=== PATIENT | male | born 1950 | race Caucasian/White ===

== ENCOUNTER → 2018-11-25 | Outpatient (CLI) | payer MEDICARE, OTHER ==
--- NOTE | 2018-11-25 11:22 | Diagnostic Imaging Report ---
PROCEDURE: US Hepatic (Liver). TECHNIQUE: Multiple Real-time grayscale images were obtained over the right upper quadrant in various projections. INDICATION: Elevated alkaline phosphatase. FINDINGS: The liver is mildly enlarged at 18.8 cm. No discrete liver mass is seen. The liver does appear to be echogenic, suggestive of hepatic steatosis. The gallbladder is without stones or sludge. No wall thickening or biliary ductal dilatation is seen. The pancreas is obscured by bowel gas. The right kidney is unremarkable. There is no ascites. IMPRESSION: 1. Findings are suggestive of hepatic steatosis. No liver mass is seen. 2. No evidence of cholelithiasis or acute cholecystitis. Dictated by: Dictated on workstation # [id number]
== END ==
LOC: RAD 09:47
PROVIDERS: ATTEND Family Medicine
DX: R74.8 Abnormal levels of other serum enzymes (principal)
CPT/HCPCS: 76705

== ENCOUNTER → 2019-07-31 | Outpatient (CLI) | payer MEDICARE, OTHER ==
[2019-07-31 14:35] LABS: ABSOLUTE RETIC # 47 10e9/L (24-90); BASOPHILS % (AUTO) 1 % (0-10); EOSINOPHILS # (AUTO) 0.4 10^3/uL (0.0-0.3); EOSINOPHILS % (AUTO) 7 % (0-10); HEMATOCRIT 40 % (40-54); LYMPHOCYTES % (AUTO) 20 % (12-44); MEAN CORPUSCULAR HEMOGLOBIN 35 PG (25-34); MEAN CORPUSCULAR HGB CONC 35 G/DL (32-36); MEAN CORPUSCULAR VOLUME 101 FL (80-99); MEAN PLATELET VOLUME 8.3 FL (7.4-10.4); MONOCYTES # (AUTO) 0.9 X 10^3 (0.0-1.0); MONOCYTES % (AUTO) 17 % (0-12); NEUTROPHILS % (AUTO) 57 % (42-75); PLATELET COUNT 185 10^3/uL (130-400); RED CELL DISTRIBUTION WIDTH 12.4 % (10.0-14.5); RETICULOCYTE % 1.19 % (0.50-2.40); WHITE BLOOD COUNT 5.2 10^3/uL (4.3-11.0)
[2019-07-31 15:00] LABS: BAND NEUTROPHILS 0 %; BASOPHILS % (MANUAL) 1 %; EOSINOPHILS % (MANUAL) 6 %; LYMPHOCYTES % (MANUAL) 18 %; MONOCYTES % (MANUAL) 14 %; NEUTROPHILS % (MANUAL) 61 %; RBC MORPH NORMAL
[2019-07-31 15:10] LABS: PROTHROMBIN TIME PATIENT 23.3 SEC (12.2-14.7)
== END ==
LOC: LAB 14:09
PROVIDERS: ATTEND Nurse Practitioner Family
DX: D64.9 Anemia, unspecified (principal); Z79.01 Long term (current) use of anticoagulants; R79.89 Other specified abnormal findings of blood chemistry
CPT/HCPCS: 36415; 85007; 85027; 85045; 85610

== ENCOUNTER → 2019-11-07 | Outpatient (CLI) | payer MEDICARE, OTHER | LOC: RAD 13:40 | PROVIDERS: ATTEND Family Medicine | DX: M25.512 Pain in left shoulder (principal); M79.622 Pain in left upper arm; Z53.9 Procedure and treatment not carried out, unspecified reason ==

== ENCOUNTER → 2020-12-04 | Outpatient (CLI) | payer MEDICARE, OTHER | LOC: LABNPT 05:41 | PROVIDERS: ATTEND Internal Medicine Critical Care Medicine | DX: Z53.9 Procedure and treatment not carried out, unspecified reason (principal) ==

== ENCOUNTER 2023-03-10 20:52 | Emergency (ER) | payer MEDICARE, OTHER ==
[~2023-03-10] VITALS: Ht 167.7 cm; Wt 111.1 kg
[2023-03-10] MEDS ORDERED: LOSA50TA63 (21:07)
[2023-03-10] MEDS ORDERED: OXYC20TA3 (21:07)
[2023-03-10] MEDS ORDERED: BISO-3 (21:07)
[2023-03-10] MEDS ORDERED: WARF-48 (21:07)
[2023-03-10] MEDS ORDERED: fentaNYL INJ 100 MCG/2 ML AMP IM STA (21:26)
--- NOTE | 2023-03-10 21:29 | ED Lower Extremity ---
General Chief Complaint: Lower Extremity Stated Complaint: RIGHT LEG PAIN Nursing Triage Note: right posterior/lateral knee pain x1 day. denies injury. reports unable to ambulate today. Source: patient Exam Limitations: no limitations History of Present Illness Date Seen by Provider: March 10, 2023 Time Seen by Provider: 21:28 Initial Comments Patient is a 73-year-old male who presents ED with right knee pain. Knee pain started 1 day ago. Dull achy pain to the anterior part of the knee. Pain worse with movement. Denies of any specific injury. Reports swelling and warmth of the right knee. Denies of any redness. Similar type pain few years ago that he had in his right ankle. Patient states it was secondary to elevated INR. 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 Denies of any calf pain, posterior thigh pain, fever, chills, trauma, chest pain or shortness of breath. Took oxycodone 6 hours ago without much improvement. Denies history of gout, RA or lupus Allergies and Home Medications Allergies Coded Allergies: No Known Drug Allergies (Unverified , 03/10/23) Patient Home Medication List Home Medication List Reviewed: Yes Bisoprolol Fumarate/Hctz (Bisoprolol-Hctz 10-6.25 mg Tab) 10 Mg-6.25 Mg Tablet, (Reported) Entered as Reported by: GEOFF VALDEZ on 03/10/232106 Last Action: New Order Losartan Potassium (Losartan Potassium) 50 Mg Tablet, (Reported) Entered as Reported by: GEOFF VALDEZ on 03/10/232106 Last Action: New Order Oxycodone HCl (Oxycodone HCl) 20 Mg Tablet, (Reported) Entered as Reported by: GEOFF VALDEZ on 03/10/232106 Last Action: New Order Warfarin Sodium (Warfarin Sodium) 5 Mg Tablet, (Reported) Entered as Reported by: GEOFF VALDEZ on 03/10/232106 Last Action: New Order Review of Systems Constitutional: No chills, No diaphoresis, No malaise, No weakness EENTM: No ear pain, No blurred vision, No double vision Respiratory: No cough, No dyspnea on exertion, No short of breath Cardiovascular: No chest pain Gastrointestinal: No abdominal pain, No diarrhea, No nausea, No vomiting Genitourinary: No decreased output, No discharge Musculoskeletal: No back pain; joint pain, joint swelling, muscle pain Skin: No change in color, No change in hair/nails All Other Systems Reviewed Negative Unless Noted: Yes Past Lvfwjfp-Aeddix-Vomqex Hx Patient Social History Tobacco Use?: Yes Substance use?: No Alcohol Use?: Yes Alcohol Frequency: Daily Pt feels they are or have been: No Immunizations Up To Date First/Initial COVID19 Vaccinat: z1 Past Medical History Surgery/Hospitalization HX: htn, hld, djd, arthritis, hernia repair x3 Physical Exam Vital Signs Vital Signs - First Documented 03/10/23 21:00 Temp 36.7 Pulse 79 Resp 16 B/P (MAP) 109/60 (76) Pulse Ox 97 O2 Delivery Room Air Capillary Refill : Less Than 3 Seconds Height, Weight, BMI Height: '" Weight: lbs. oz. kg; 39.00 BMI Method: General Appearance: WD/WN, no apparent distress HEENT: PERRL/EOMI, normal ENT inspection, TMs normal, pharynx normal Neck: non-tender, full range of motion, supple, normal inspection Cardiovascular: regular rate, rhythm, no gallop, no JVD Respiratory: chest non-tender, lungs clear, normal breath sounds Gastrointestinal: normal bowel sounds, non tender, soft Back: normal inspection, no CVA tenderness Legs: right leg other (No calf tenderness, ankle tenderness, thigh tenderness. No swelling or bruising of the calf. Stasis dermatitis bilateral lower extremity) Knees: right knee pain, right knee soft tissue tenderness, right knee swelling, right knee other (Full extension with flexion to 90 degrees. 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, no motor/sensory deficits, alert, normal mood/affect, oriented x 3 Skin: normal color, warm/dry Progress/Results/Core Measures Results/Orders Lab Results Laboratory Tests Test 03/10/23 20:50 Range/Units Prothrombin Time 30.3 H 12.2-14.7 SEC INR Comment 2.9 H 0.8-1.4 Activated Partial Thromboplast Time 35 24-35 SEC My Orders Orders - HAWK PATRICIO Knee, Right, 3 Views (03/10/23 21:26) Partial Thromboplastin Time (03/10/23 21:26) Protime With Inr (03/10/23 21:26) Fentanyl Inj (Sublimaze Injection) (03/10/23 21:26) Oxycodone Immediate Rel Tablet (Oxyir Ta (03/10/23 22:15) Medications Given in ED Vital Signs/I&O 03/10/23 03/10/23 21:00 22:44 Temp 36.7 Pulse 79 74 Resp 16 18 B/P (MAP) 109/60 (76) 112/61 Pulse Ox 97 96 O2 Delivery Room Air Room Air Blood Pressure Mean: 76 Departure Communication (PCP) Reviewed previous ER visits, H&P, lab testing. Complaining of right knee pain. No specific injury. Did have some notable swelling to the right knee. No erythema. Mild warmth. Flexion to 90 degrees with full extension. History of arthritis "bone on bone" according to patient. No calf tenderness, thigh tenderness, posterior leg tenderness. Currently on warfarin history of DVT. Patient with right knee anterior joint line tenderness. Due to age and pain to the right knee x-ray was ordered. Severe arthritic changes noted on xray. Joint effusion noted. Suspect flare of of arthritis of the right knee. Believe patient would benefit with steroid intra-articular injection. Refused injection . Patient does have orthopedic who he will follow-up with. INR was 2.9. Patient does not appear in acute distress. Patient was given IM morphine and oxycodone. Improvement of pain. Does have oxycodone at home. Discussed results with family at bedside. Patient does have a ride. Return precautions were discussed with patient. Follow-up with PCP in 2 to 3 days for reevaluation. Denies history of gout. Recommend assistance with walking. Mariano wrap for support. Elevate at night. Ice to help with swelling. Impression Primary Impression: Knee pain Disposition: HOME, SELF-CARE Condition: Stable Departure-Patient Inst. Decision time for Depature: 22:33 Referrals: JANIE GUZMAN MD (PCP/Family) Primary Care Physician Patient Instructions: Knee Pain Add. Discharge Instructions: Recommend follow-up with your orthopedic for further evaluation. Pain medication as needed. Ice to help with swelling. Work on range of motion exercises All discharge instructions reviewed with patient and/or family. Voiced understanding. HAWK PATRICIO March 10, 2023 21:29
[2023-03-10 22:13] LABS: INR 2.9 (0.8-1.4); PROTHROMBIN TIME PATIENT 30.3 SEC (12.2-14.7)
--- NOTE | 2023-03-10 22:28 | Diagnostic Imaging Report ---
EXAMINATION: 3 views of the right knee obtained. HISTORY: knee pain COMPARISON: None available. FINDINGS: No acute osseous findings. Joint effusion. Severe joint space narrowing within the medial compartment. Vascular calcification. Marginal osteophytes. IMPRESSION: No acute osseous findings. Joint effusion. Severe degenerative changes particularly in the medial compartment of the right knee. Dictated by: Dictated on workstation # [id number]
[2023-03-10 22:44] VITALS: BP 112/61
== END 2023-03-10 22:44 | disposition home or self-care (01) ==
LOC: EDUNIT# 20:52 → ER 20:57
DX: M25.561 Pain in right knee (principal); I82.409 Acute embolism and thrombosis of unspecified deep veins of unspecified lower extremity; Z79.01 Long term (current) use of anticoagulants; Z28.311 Partially vaccinated for COVID-19
CPT/HCPCS: 36415; 73562; 85610; 85730